=== PATIENT | female | born 1995 | race African-American/Black ===

== ENCOUNTER 2022-06-20 10:35 | Emergency (ER) | payer OTHER ==
[2022-06-20 11:10] LABS: #Eosinphils 0.1 10x3/uL (0.0-0.5); #Monocytes 0.4 10x3/uL (0.0-1.1); #Neutrophils 1.9 10x3/uL (1.5-8.4); %Basophils 0.5 % (0.0-2.0); %Eosinophils 1.4 % (0.0-6.0); %Monocytes 8.3 % (0.0-10.0); %Neutrophils 44.8 % (40.0-75.0); Hemoglobin 12.1 g/dL (12.0-15.5); Mean Corpuscular HGB CONC 35.2 g/dL (32.0-36.0); Mean Corpuscular Hemoglobin 31.3 pg (27.0-33.0); Mean Corpuscular Volume 88.9 fl (81.6-98.3); Mean Platelet Volume 8.6 fl (7.4-10.4); Platelet Count 258 10x3/uL (150-450); RBC Distribution Width 12.9 % (11.5-14.5); Red Blood Cell (RBC) Count 3.87 10x6/uL (3.90-5.03); White Blood Cell (WBC) Count 4.3 10x3/uL (3.5-10.5)
[2022-06-20 11:29] LABS: ALT (SGPT) 10 U/L (8-55); AST (SGOT) 11 U/L (5-34); Albumin 3.9 g/dL (3.5-5.0); Alkaline Phosphatase 46 U/L (40-110); Anion Gap 13 mmol/L (10-20); BUN (Urea Nitrogen) 5 mg/dL (7.0-18.7); Bilirubin, Total 0.8 mg/dL (0.2-1.2); Calc. Creatinine Clearance 0 mL/min (70-130); Calcium 8.2 mg/dL (7.8-10.44); Carbon Dioxide 21 mmol/L (22-29); Chloride 109 mmol/L (98-107); Estimated GFR 123; Globulin 2.4 g/dL (2.4-3.5); Glucose 87 mg/dL (70-105); Lipase 7 U/L (8-78); Potassium 4.1 mmol/L (3.5-5.1); Protein, Total 6.3 g/dL (6.0-8.3); Sodium 139 mmol/L (136-145)
[2022-06-20 11:39] LABS: Bilirubin Neg (Negative); Blood, Urine 10 (Negative); Clarity Cloudy (Clear); Glucose, Urine (Dipstick) Normal (Negative); Ketone, Urine 50 mg/dL (Negative); Leukocyte 500 (Negative); Nitrite Negative (Negative); Protein, Urine (Dipstick) 30 mg/dl (Neg-Trace); Specific Gravity, Urine 1.015 (1.005-1.030); pH, Urine 6.5 (5.0-9.0)
[2022-06-20 11:40] LABS: Pregnancy Test - Urine (BHCG) POSITIVE (Negative); Pregu Control Background? CLEAR/WHITE (CLR/WHITE); Pregu Control Bar Appear? YES (CONTROL BAR); Specific Gravity 1.015 (1.002-1.036)
[2022-06-20 11:47] LABS: Bacteria/HPF 2+ HPF (None Seen); WBC/HPF Greater Than 50 HPF (0-3)
[2022-06-20] MEDS ORDERED: cefTRIAXone\\ROCEPHIN 1 GM VIAL ONE (12:27)
[2022-06-20 12:42] LABS: Amphetamine Not Detected (NotDetected); Barbiturates Screen Not Detected (NotDetected); Benzodiazepine Screen Not Detected (NotDetected); Cocaine Metabolite Screen Not Detected (NotDetected); Methadone Not Detected (NotDetected); Methamphetamine Not Detected (NotDetected); Opiate Screen Not Detected (NotDetected); Oxycodone Screen Not Detected (NotDetected); Phencyclidine (PCP) Not Detected (NotDetected); THC/Cannabinoid Screen Detected (NotDetected); Tricyclic Screen Not Detected (NotDetected)
[2022-06-20 12:49] LABS: Acetaminophen Less than 10.0 mcg/mL (10.0-30.0); Alcohol Less than 10 mg/dL (Less than 10); Salicylate Less than 8.0 mg/dL (15.0-30.0)
[2022-06-20 13:10] LABS: Thyroid Stimulating Hormone 0.344 uIU/mL (0.35-4.94)
[2022-06-20 13:27] LABS: HCG, Total Quant 112231.75 mIU/mL (See Ranges)
[2022-06-20] MEDS ORDERED: Ziprasidone 20 MG VIAL ONE (17:29)
[2022-06-20 18:01] LABS: Free T4 (Free Thyroxine) 0.85 ng/dL (0.70-1.48)
[2022-06-20 18:08] LABS: SARS-CoV-2 NAA Rapid Test Not Detected (NotDetected)
== END 2022-06-20 18:32 ==
LOC: CSHERS 10:35
DX: O23.41 Unspecified infection of urinary tract in pregnancy, first trimester (principal); O99.341 Other mental disorders complicating pregnancy, first trimester; F20.9 Schizophrenia, unspecified; O99.511 Diseases of the respiratory system complicating pregnancy, first trimester; J45.909 Unspecified asthma, uncomplicated; Z3A.01 Less than 8 weeks gestation of pregnancy
CPT/HCPCS: 36415; 80053; 80306; 80307; 81003; 81015; 81025; 82550; 83605; 83690; 84439; 84443; 84481; 84702; 85025; 87086; 96365; 96366; 96372; J0696; J3486; U0002

== ENCOUNTER → 2025-05-05 | Emergency (ER) | payer OTHER ==
[~2025-05-05] MED LIST: Acetaminophen 500 MG TAB ONE
[2025-05-05 14:15] LABS: #Basophils 0.04 10x3/uL (0.0-0.2); #Eosinophils 0.27 10x3/uL (0.0-0.5); #Monocytes 0.47 10x3/uL (0.0-1.1); #Neutrophils 1.71 10x3/uL (1.5-8.4); %Basophils 0.8 % (0.0-2.0); %Eosinophils 5.1 % (0.0-6.0); %Lymphocytes 52.8 % (18.0-47.0); %Monocytes 8.9 % (0.0-10.0); %Neutrophils 32.4 % (40.0-75.0); Hematocrit 34.5 % (34.9-44.5); Hemoglobin 11.2 g/dL (12.0-15.5); Mean Corpuscular Hemoglobin 30.4 pg (27.0-33.0); Mean Corpuscular Volume 93.8 fL (81.6-98.3); Platelet Count 290 10x3/uL (150-450); Red Blood Cell (RBC) Count 3.68 10x6/uL (3.90-5.03); White Blood Cell (WBC) Count 5.28 10x3/uL (3.5-10.5)
[2025-05-05 14:32] LABS: ALT (SGPT) 28 U/L (Less than 34); AST (SGOT) 26 U/L (11-34); Albumin 4.1 g/dL (3.1-4.5); Alkaline Phosphatase 58 U/L (40-110); Anion Gap 11 mmol/L (10-20); BUN (Urea Nitrogen) 6 mg/dL (7.0-18.7); Bilirubin, Total 0.2 mg/dL (0.3-1.2); Calc. Creatinine Clearance 0 mL/min (70-130); Calcium 8.3 mg/dL (7.8-10.44); Carbon Dioxide 26 mmol/L (22-29); Chloride 108 mmol/L (98-107); Globulin 2.7 g/dL (2.4-3.5); Glucose 81 mg/dL (70-105); Potassium 4.0 mmol/L (3.5-5.1); Sodium 141 mmol/L (136-145)
== END ==
LOC: CSHERS 12:50
DX: O36.80X0 Pregnancy with inconclusive fetal viability, not applicable or unspecified (principal)
CPT/HCPCS: 36415; 76856; 80053; 84702; 85025; 86900; 86901